=== PATIENT | male | born 1990 | race Caucasian/White ===

== ENCOUNTER 2016-07-09 06:46 | Emergency (ER) | payer OTHER ==
[~2016-07-09] VITALS: Ht 177.8 cm; Wt 75.0 kg
[~2016-07-09 06:46] MED LIST: CHLO.12%30 SSP; Z.0.NO CURRENT MEDS
[2016-07-09 06:50] VITALS: BP 182/81; PULSE 96; RESP 16; TEMP 98.4; O2SAT 99
[2016-07-09 07:18] VITALS: BP 146/87; PULSE 86; RESP 18; TEMP 97.6; O2SAT 97
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
[2016-07-09] MEDS ORDERED: SODIUM CHLORIDE 0.9% FLUSH 5 ML FLUSH IVF PRN (07:30)
[2016-07-09] MEDS ORDERED: ACETAMINOPHEN/HYDROcodone 325 MG/5 MG TAB PO ONE (07:45)
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
[2016-07-09] MEDS ORDERED: CYCL1TAB29 PO (08:36)
[2016-07-09] MEDS ORDERED: MOTR200T4 PO (08:36)
[2016-07-09 09:25] VITALS: BP 136/76; PULSE 86; RESP 16; O2SAT 98
== END 2016-07-09 09:26 | disposition home or self-care (01) ==
LOC: NEPC 06:46
DX: S80.01XA Contusion of right knee, initial encounter (principal); R51 Headache; V49.49XA Driver injured in collision with other motor vehicles in traffic accident, initial encounter
CPT/HCPCS: 70450; 71100; 73564; 99284; E0113